=== PATIENT | female | born 1990 | race Two or more races ===

== ENCOUNTER 2018-05-07 12:11 | Inpatient (IN) | payer OTHER ==
[~2018-05-07] VITALS: Ht 162.6 cm; Wt 87.5 kg
[2018-05-30] MEDS ORDERED: PRENATAL FORMU1 EAC1 PO (05:35)
[2018-05-30] MEDS ORDERED: PROTONIX40 MG PO (05:35)
[2018-05-30] MEDS ORDERED: ZANTAC150 M3 PO (05:36)
== END 2018-06-01 11:41 | disposition home or self-care (01) | DRG 768 ==
LOC: LDR 05-30 05:09 → OB/GYN 05-30 05:09
PROVIDERS: ADMIT Specialist
PROC: 10E0XZZ Delivery of Products of Conception, External Approach (ICD-10-PCS; principal; 2018-05-30)
PROC: 0DQR0ZZ Repair Anal Sphincter, Open Approach (ICD-10-PCS; 2018-05-30)
PROC: 0W8NXZZ Division of Female Perineum, External Approach (ICD-10-PCS; 2018-05-30)
PROC: 3E033VJ Introduction of Other Hormone into Peripheral Vein, Percutaneous Approach (ICD-10-PCS; 2018-05-30)
PROC: 4A1HXCZ Monitoring of Products of Conception, Cardiac Rate, External Approach (ICD-10-PCS; 2018-05-30)
DX: O70.21 Third degree perineal laceration during delivery, IIIa (principal); Z37.0 Single live birth; Z3A.38 38 weeks gestation of pregnancy; O24.420 Gestational diabetes mellitus in childbirth, diet controlled